=== PATIENT | male | born 1960 | race Caucasian/White ===

== ENCOUNTER 2018-11-10 07:25 | Emergency (ER) | payer MEDICAID ==
[~2018-11-10] VITALS: Ht 160 cm; Wt 77.7 kg
[2018-11-10 07:33] VITALS: BP 183/107
--- NOTE | 2018-11-10 07:45 | NUR ---
58 Y MALE BIB C/O LEFT SHOULDER PAIN X15 DAYS. PT REPORTS NON-RADIATING CONSTANT THROBING PAIN AT 10/10. PT DENIES TRAUMA, VISIBLE BRUISE ON LT SHOULDER, NO SWELLING, NO DEFORMITY. PT UNABLE TO LIFT LT ARM. LT DISTAL EXTREMITYCAP REFIL <2 SEC, COLOR NORMAL, RADIAL PULSE PRESENT 2+, PT DENIES NUMBNESS OR TINGLING. DENIES CP, SOB, NAUSEA. PT BELIEVES THE PAIN STARTED WHEN HE WAS LIFTING A HEAVY OBJECT. VSS AT THIS TIME, [id number]. BED IS DOWN, LOCKED, BED RAIL X 1, ERMD TO SEE PT. MEDHX:DENIES RX:DENIES
--- NOTE | 2018-11-10 07:51 | NUR ---
DR. MEDEIROS AT BEDSIDE EVALUATING PATIENT.
[2018-11-10] MEDS ORDERED: KETOROLAC 30 MG/ML VIAL IM ONE (08:05)
--- NOTE | 2018-11-10 08:18 | NUR ---
PT BEING TAKEN TO XRAY
--- NOTE | 2018-11-10 08:18 | NUR ---
Marcin calloway in [facility] - 11/10/18 at 0818 by KASH XRAY AT BEDSIDE
--- NOTE | 2018-11-10 08:28 | NUR ---
PT RETURNED FROM X RAY
--- NOTE | 2018-11-10 09:01 | NUR ---
[facility] EMT AT BEDSIDE PLACING SLING ON PT
[2018-11-10 09:05] VITALS: BP 179/102
--- NOTE | 2018-11-10 09:05 | NUR ---
Patient discharged with v/s stable. Written and verbal after care instructions given and explained. Patient alert, oriented and verbalized understanding of instructions. Ambulatory with steady gait. All questions addressed prior to discharge. ID band removed. Patient advised to follow up with PMD. Rx of NORCO, NAPROSYN given. Patient educated on indication of medication including possible reaction and side effects. Opportunity to ask questions provided and answered. pt verbalizes understanding of sling use.
== END 2018-11-10 09:05 | disposition home or self-care (01) ==
LOC: MED 07:25
DX: S43.002A Unspecified subluxation of left shoulder joint, initial encounter (principal); X50.0XXA Overexertion from strenuous movement or load, initial encounter; Y93.89 Activity, other specified; Y92.89 Other specified places as the place of occurrence of the external cause; Y99.8 Other external cause status
CPT/HCPCS: 73030; 96372; 99283; J1885